=== PATIENT | female | born 1995 | race Asian ===

== ENCOUNTER 2019-05-17 00:11 | Emergency (ER) | payer OTHER ==
--- NOTE | 2019-05-17 00:27 | ED ---
Shortness of Breath - HPI Summary HPI Summary: This pt is a 23 Y/O F [facility] with a CC of SOB and coughing that occurred after she finished dipping her nails in powder. She states that she has been feeling better since she arrived at [facility]. She states that her throat is sore and she rates the pain 3/10 in severity. She has no aggravating or alleviating factors. She denies any fevers, chills, headaches, and N/V. She denies any pertinent PMHx and has no pertinent FHx. - History of Current Complaint Chief Complaint: EDShortnessOfBreath Time Seen by Provider: 05/17/19 00:19 Hx Obtained From: Patient Onset/Duration: Sudden Onset Timing: Constant Current Severity: Mild Dyspnea At: Rest Aggravating Factors: Other - states that she dipped her hands in powder to color them Alleviating Factors: Spontaneous Resolution Associated Signs & Symptoms: Negative - fevers, chills, headaches, and N/V., Cough (Nonproductive) - Allergy/Home Medications Allergies/Adverse Reactions: Allergies Allergy/AdvReac Type Severity Reaction Status Date / Time nut - unspecified Allergy Unknown Verified 12/11/17 14:50 Reaction Details fruit Allergy Rash Uncoded 12/11/17 14:50 Home Medications: Home Medications Norethindrone-E.estradiol-Iron [Junel Fe 1 mg-20 Mcg Tablet] 1 tab PO DAILY [History Confirmed 05/17/19] PMH/Surg Hx/FS Hx/Imm Hx Previously Healthy: Yes Endocrine/Hematology History: Denies: Hx Diabetes Cardiovascular History: Denies: Hx Deep Vein Thrombosis, Hx Hypotension, Hx Hypertension, Hx Pacemaker/ICD, Hx Peripheral Vascular Disease Respiratory History: Denies: Hx Chronic Obstructive Pulmonary Disease (COPD) GI History: Reports: Hx Gastroesophageal Reflux Disease Denies: Hx Pyloric Stenosis Musculoskeletal History: Denies: Hx Bursitis - Cancer History Hx Chemotherapy: No Hx Radiation Therapy: No - Surgical History Surgical History: None Surgery Procedure, Year, and Place: None - Immunization History Immunizations Up to Date: Yes Infectious Disease History: No Infectious Disease History: Denies: Traveled Outside the [place] in Last 30 Days - Family History Known Family History: Negative: Renal Disease, Respiratory Disease, Seizure Disorder - Social History Occupation: Student - [employer] Lives: Dormitory/Roommates Alcohol Use: None Hx Substance Use: No Substance Use Type: Reports: None Hx Tobacco Use: No Smoking Status (MU): Never Smoked Tobacco Review of Systems Negative: Fever, Chills Positive: Shortness Of Breath, Cough Negative: Vomiting, Nausea Negative: Headache All Other Systems Reviewed And Are Negative: Yes Physical Exam - Summary Physical Exam Summary: Appearance: Well-appearing, Well-nourished, lying in bed comfortably Skin: Warm, dry, no obvious rash Eyes: sclera anicteric, no conjunctival pallor ENT: mucous membranes moist, pharynx appears normal Neck: Supple, nontender Respiratory: Clear to auscultation, no signs of respiratory distress Cardiovascular: Normal S1, S2. No murmurs. Normal distal pulses in tibial and radial bilaterally. Abdomen: Soft, nontender, normal active bowel sounds present Musculoskeletal: Normal, Strength/ROM Intact Neurological: A&Ox3, awake and alert, mentation is normal, speech is fluent and appropriate Psychiatric: affect is normal, does not appear anxious or depressed Triage Information Reviewed: Yes Vital Signs On Initial Exam: Initial Vitals Temp Pulse Resp BP Pulse Ox 97.2 F 112 20 145/103 100 05/17/19 00:12 05/17/19 00:12 05/17/19 00:12 05/17/19 00:12 05/17/19 00:12 Vital Signs Reviewed: Yes Procedures - Sedation Patient Received Moderate/Deep Sedation with Procedure: No Diagnostics - Vital Signs Vital Signs Temp Pulse Resp BP Pulse Ox 05/17/19 00:12 97.2 F 112 20 145/103 100 - Laboratory Lab Statement: Any lab studies that have been ordered have been reviewed, and results considered in the medical decision making process. Course/Dx - Course Course Of Treatment: This pt is a 23 Y/O F presenting [facility] with a CC of SOB and coughing that occurred after she finished dipping her nails in powder. She states that she has been feeling better since she arrived at [facility]. She states that her throat is sore and she rates the pain 3/10 in severity. She has no aggravating or alleviating factors. She denies any fevers, chills, headaches, and N/V. She denies any pertinent PMHx and has no pertinent FHx. Her PE found that she has no acute abnormalities. She will be discharged home with a Dx of URI - Diagnoses Provider Diagnoses: URI (upper respiratory infection) Discharge ED - Sign-Out/Discharge Documenting (check all that apply): Patient Departure - discharge - Discharge Plan Condition: Stable Disposition: HOME Patient Education Materials: Upper Respiratory Infection (ED) Referrals: [facility] [Outside] - If Needed Additional Instructions: PLEASE FOLLOW UP WITH THE [facility]ICAL [facility]ESS [facility] DEPARTMENT IN 1-3 DAYS AND RETURN TO THE EMERGENCY DEPARTMENT FOR ANY NEW OR WORSENING. - Billing Disposition and Condition Condition: STABLE Disposition: Home - Attestation Statements Document Initiated by Jenna: Yes Documenting Scribe: King Le Provider For Whom Jenna is Documenting (Include Credential): Azael Espinosa MD Scribe Attestation: King Thomas scribed for Azael Espinosa MD on 05/18/19 at 0356. Scribe Documentation Reviewed: Yes Provider Attestation: The documentation as recorded by the King russell accurately reflects the service I personally performed and the decisions made by me, Azael Espinosa MD Status of Scribe Document: Viewed
[2019-05-17 00:40] VITALS: BP 125/98
== END 2019-05-17 00:39 | disposition home or self-care (01) ==
LOC: ED 00:11
DX: J06.9 Acute upper respiratory infection, unspecified (principal); K21.9 Gastro-esophageal reflux disease without esophagitis
CPT/HCPCS: 99282

== ENCOUNTER 2019-05-28 22:18 | Emergency (ER) | payer OTHER ==
[2019-05-28] MEDS ORDERED: methylPREDNISolone 125 MG* 2 ML VIAL IV ONE (22:48)
[2019-05-28] MEDS ORDERED: diPHENhydraMINE IV* 50 MG/ML 1 ml VIAL (BENADRYL) IV ONE (22:48)
[2019-05-28] MEDS ORDERED: Famotidine IV* 10 MG/ML 2 ML (20 mg) IV SLOW PU ONE (22:48)
[2019-05-28] MEDS ORDERED: NS 0.9% 1000 ML** 1,000 ML IV ONE (22:53)
--- NOTE | 2019-05-28 22:55 | ED ---
Allergic Reaction/Systemic - HPI Summary HPI Summary: Patient complains of tight throat, cough, shortness of breath as possible allergic reaction to fingernail powder. Patient presented with same symptoms as a reaction to same substance 1 week ago at this ED. patient did not believe substance was the trigger, and use it again today. Denies any other pain, injury or symptoms. Medical history is none. 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 Carries EpiPen. Norethindrone-E.estradiol-Iron [Junel Fe 1 mg-20 Mcg Tablet] 1 tab PO DAILY [History Confirmed 05/28/19] - History of Current Complaint Chief Complaint: EDAllergicReaction Time Seen by Provider: 05/28/19 22:47 Hx Obtained From: Patient Onset/Duration: Sudden Onset, Started hours ago Timing: Constant Severity Initially: Mild Severity Currently: Mild Pain Intensity: 2 Pain Scale Used: 0-10 Numeric Associated Signs And Symptoms: Positive: Difficulty Breathing, Throat Tightening - Allergies/Home Medications Allergies/Adverse Reactions: Allergies Allergy/AdvReac Type Severity Reaction Status Date / Time cat dander Allergy Unknown Verified 05/28/19 22:30 Reaction Details nut - unspecified Allergy Unknown Verified 12/11/17 14:50 Reaction Details tree and shrub pollen Allergy Rash And Verified 05/28/19 22:30 Itching fruit Allergy Rash Uncoded 12/11/17 14:50 Home Medications: Home Medications Norethindrone-E.estradiol-Iron [Junel Fe 1 mg-20 Mcg Tablet] 1 tab PO DAILY [History Confirmed 05/28/19] EPINEPHrine [Epipen 2-Gera] 0.3 mg IM SEE INSTRUCTIONS #1 inj 05/29/19 [Rx] predniSONE 20 mg TAB [Deltasone 20 MG TAB*] 40 mg PO DAILY 3 Days #6 tab [Rx] PMH/Surg Hx/FS Hx/Imm Hx Endocrine/Hematology History: Denies: Hx Diabetes Cardiovascular History: Denies: Hx Deep Vein Thrombosis, Hx Hypotension, Hx Hypertension, Hx Pacemaker/ICD, Hx Peripheral Vascular Disease Respiratory History: Denies: Hx Chronic Obstructive Pulmonary Disease (COPD) GI History: Reports: Hx Gastroesophageal Reflux Disease Denies: Hx Pyloric Stenosis History: Denies: Hx Dialysis Musculoskeletal History: Denies: Hx Bursitis Sensory History: Denies: Hx Eye Prosthesis Opthamlomology History: Denies: Hx Legally Blind EENT History: Denies: Hx Deafness Neurological History: Denies: Hx Dementia - Cancer History Hx Chemotherapy: No Hx Radiation Therapy: No - Surgical History Surgery Procedure, Year, and Place: None Infectious Disease History: No Infectious Disease History: Denies: Traveled Outside the [place] in Last 30 Days - Family History Known Family History: Negative: Renal Disease, Respiratory Disease, Seizure Disorder - Social History Alcohol Use: None Hx Substance Use: No Substance Use Type: Reports: None Hx Tobacco Use: No Smoking Status (MU): Never Smoked Tobacco Review of Systems Constitutional: Negative Eyes: Negative Positive: Sore Throat Cardiovascular: Negative Positive: Shortness Of Breath, Cough Gastrointestinal: Negative Genitourinary: Negative Musculoskeletal: Negative Skin: Negative Neurological/Mental Status: Negative Psychological: Normal All Other Systems Reviewed And Are Negative: Yes Physical Exam Triage Information Reviewed: Yes Vital Signs On Initial Exam: Initial Vitals Temp Pulse Resp BP Pulse Ox 98.1 F 83 16 130/93 98 05/28/19 22:27 05/28/19 22:27 05/28/19 22:27 05/28/19 22:27 05/28/19 22:27 Vital Signs Reviewed: Yes Appearance: Positive: Well-Appearing Skin: Positive: Warm Head/Face: Positive: Normal Head/Face Inspection Eyes: Positive: Normal ENT: Positive: Normal ENT inspection Neck: Positive: Supple Respiratory/Lung Sounds: Positive: Clear to Auscultation Cardiovascular: Positive: Normal Abdomen Description: Positive: Nontender Musculoskeletal: Positive: Normal Neurological: Positive: Normal Psychiatric: Positive: Normal AVPU Assessment: Alert - [place] Coma Scale Best Eye Response: 4 - Spontaneous Best Motor Response: 6 - Obeys Commands Best Verbal Response: 5 - Oriented Coma Scale Total: 15 Procedures - Sedation Patient Received Moderate/Deep Sedation with Procedure: No Diagnostics - Vital Signs Vital Signs Temp Pulse Resp BP Pulse Ox 05/28/19 22:27 98.1 F 83 16 130/93 98 - Laboratory Lab Statement: Any lab studies that have been ordered have been reviewed, and results considered in the medical decision making process. Allergic Reaction Course/Dx - Course Course Of Treatment: Patient complains of tight throat, cough, shortness of breath as possible allergic reaction to fingernail powder. Patient presented with same symptoms as a reaction to same substance 1 week ago at this ED. patient did not believe substance was the trigger, and use it again today. Denies any other pain, injury or symptoms. Medical history is none. History of allergy to trees, nuts, cats. Carries EpiPen. Vital signs within normal limits. Patient feels better after Solu-Medrol, Benadryl and Pepcid IV. Normal reexam of ENT and lungs. Renewal of EpiPen prescription. Rx for Prednisone for 3 days. - Diagnoses Provider Diagnoses: Allergic reaction Discharge ED - Sign-Out/Discharge Documenting (check all that apply): Patient Departure - Discharge Plan Condition: Stable Disposition: HOME Prescriptions: EPINEPHrine [Epipen 2-Gera] 0.3 mg IM SEE INSTRUCTIONS #1 inj predniSONE 20 mg TAB [Deltasone 20 MG TAB*] 40 mg PO DAILY 3 Days #6 tab Patient Education Materials: General Allergic Reaction (ED) Referrals: No Primary Care Phys,NOPCP [Primary Care Provider] - Additional Instructions: Take prednisone as directed. You may also take Benadryl if needed. Return to the ED for any new or worsening symptoms. - Billing Disposition and Condition Condition: STABLE Disposition: Home - Attestation Statements Provider Attestation: the patient was seen by the midlevel provider, it was determined by them that it was not necessary for me to see the patient, I was available for consult during the patient's visit in the ED. I did not establish and patient-physician relationship. The chart however has been reviewed and I am signing in an administrative capacity.
[2019-05-28] MEDS ORDERED: Albuterol/Ipratropium NEB.SOL* Albuterol 2.5 MG/Ipratropium 0.5 MG 3 ML INH ONE (23:03)
[2019-05-29 01:02] VITALS: BP 141/80
== END 2019-05-29 01:01 | disposition home or self-care (01) ==
LOC: ED 22:18
DX: T78.40XA Allergy, unspecified, initial encounter (principal); R07.0 Pain in throat; R05 Cough; R06.02 Shortness of breath; X58.XXXA Exposure to other specified factors, initial encounter; Z91.018 Allergy to other foods; Z91.048 Other nonmedicinal substance allergy status
CPT/HCPCS: 96361; 96374; 96375; 99283; A9270-GY; J1200; J2930